=== PATIENT | female | born 1985 | race American Indian/Alaskan Native ===

== ENCOUNTER 2020-07-13 08:37 | Emergency (ER) | payer SELFPAY ==
[2020-07-13] MEDS ORDERED: LIDOCAINE (1%) 10 MG/1 ML VIAL 20 ML MDV INFILTRATI ONE (11:09)
--- NOTE | 2020-07-13 11:19 | Emergency Department Report ---
ED General Adult HPI - General Chief complaint: Skin/Abscess/Foreign Body Stated complaint: BOIL Time Seen by Provider: 07/13/20 10:36 Source: patient Mode of arrival: Ambulatory Limitations: No Limitations - History of Present Illness Initial comments: 35-year-old -[place] female patient presents with complaints of right groin abscess x5 days. Patient states history of recurrent abscesses in her groin in her underarms, however denies any official diagnosis of hidradenitis supra [place]. She rates her current pain as a 10/10 in severity and states that she has been using warm compresses to bring the abscess to ahead. She denies any fever/chills/sweats. -: Gradual Quality: burning, aching Consistency: constant - Related Data Home Medications Medication Instructions Recorded Confirmed Last Taken Ferrous Sulfate [Feosol] 325 mg PO QDAY 08/18/16 08/18/16 08/18/16 Pnv No.95/Ferrous Fum/Folic AC 1 each PO DAILY 08/18/16 08/18/16 08/18/16 [ [place]] raNITIdine HCL [Heartburn Relief] 75 mg PO PRN PRN 08/18/16 08/18/16 08/18/16 Previous Rx's Medication Instructions Recorded Last Taken Type Ibuprofen [Motrin 600 MG tab] 600 mg PO Q6H PRN #60 tablet 08/20/16 Unknown Rx Vit-Fe Fumar-FA [ 1 each PO QDAY #30 tablet 08/20/16 Unknown Rx Vitamin] Acetaminophen/Codeine [Tylenol 1 tab PO Q6H PRN #8 tab 07/13/20 Unknown Rx /Codeine # 3 tab] Doxycycline Monohydrate 100 mg PO BID 10 Days #20 capsule 07/13/20 Unknown Rx [Doxycycline Monohydrate CAP] Mupirocin [Bactroban 2% OINT] 1 applic TP TID 7 Days #1 tube 07/13/20 Unknown Rx Allergies Allergy/AdvReac Type Severity Reaction Status Date / Time No Known Allergies Allergy Verified 08/18/16 19:27 ED Review of Systems ROS: Stated complaint: BOIL Other details as noted in HPI Constitutional: denies: chills, diaphoresis, fever, malaise, weakness Genitourinary: denies: urgency, dysuria Skin: as per HPI. denies: rash Neurological: denies: numbness, paresthesias ED Past Medical Hx - Past Medical History Previous Medical History?: Yes Hx Hypertension: No Hx Congestive Heart Failure: No Hx Diabetes: No Hx Deep Vein Thrombosis: No Hx Renal Disease: No Hx Sickle Cell Disease: Yes (SICKLE CELL TRAIT) Hx Seizures: No Hx Asthma: No Hx COPD: No Hx HIV: No - Surgical History Past Surgical History?: Yes Additional Surgical History: tonsillectomy - Social History Smoking Status: Current Every Day Smoker Substance Use Type: None - Medications Home Medications: Home Medications Medication Instructions Recorded Confirmed Last Taken Type Ferrous Sulfate [Feosol] 325 mg PO QDAY 08/18/16 08/18/16 08/18/16 History Pnv No.95/Ferrous Fum/Folic AC 1 each PO DAILY 08/18/16 08/18/16 08/18/16 History [ Caplet] raNITIdine HCL [Heartburn Relief] 75 mg PO PRN PRN 08/18/16 08/18/16 08/18/16 History Ibuprofen [Motrin 600 MG tab] 600 mg PO Q6H PRN #60 tablet 08/20/16 Unknown Rx Vit-Fe Fumar-FA [ 1 each PO QDAY #30 tablet 08/20/16 Unknown Rx Vitamin] Acetaminophen/Codeine [Tylenol 1 tab PO Q6H PRN #8 tab 07/13/20 Unknown Rx /Codeine # 3 tab] Doxycycline Monohydrate 100 mg PO BID 10 Days #20 capsule 07/13/20 Unknown Rx [Doxycycline Monohydrate CAP] Mupirocin [Bactroban 2% OINT] 1 applic TP TID 7 Days #1 tube 07/13/20 Unknown Rx ED Physical Exam - General Limitations: No Limitations General appearance: alert, in no apparent distress, obese - Head Head exam: Present: atraumatic, normocephalic - Eye Eye exam: Present: normal appearance. Absent: scleral icterus - Neck Neck exam: Present: normal inspection - Respiratory Respiratory exam: Absent: respiratory distress - Cardiovascular Cardiovascular Exam: Present: regular rate - Neurological Exam Neurological exam: Present: alert, oriented X3 - Psychiatric Psychiatric exam: Present: normal affect, normal mood - Skin Skin exam: Present: warm, dry, intact, other (3 cm round red fluctuant abscess noted to right groin with mild surrounding erythema and swelling.) ED Course Vital Signs 07/13/20 08:38 Temperature 98.3 F Pulse Rate 90 Respiratory 18 Rate Blood Pressure 138/89 O2 Sat by Pulse 99 Oximetry - I & D Thigh Blade Size: 11 I & D Procedure: betadine prep, sterile drapes applied, sterile dressing applied, gauze wick placed Progress: Bleeding occurred during procedure. 11 cc 1% lidocaine used to anesthetize the area. Copious purulent drainage obtained from wound. Sample was taken for wound culture. ED Medical Decision Making - Medical Decision Making Patient here for abscess in right groin. Abscess was drained and a wound culture was sent. Patient tolerated procedure well. Given history of recurrent abscesses and growing and axilla, patient likely has hidradenitis suppurativa. Given surrounding erythema, 1 dose of rocephin was given here in ED for cellulitis. Discussed importance of follow-up with a primary care provider for further evaluation and treatment of this. Discussed wound care and strict return precautions in great detail with patient who verbalizes understanding. She is well-appearing, afebrile, and stable for discharge home. Prescription for doxycycline and mupirocin given. Patient instructed to return to ED in 2 days for wound recheck. Critical care attestation.: If time is entered above; I have spent that time in minutes in the direct care of this critically ill patient, excluding procedure time. ED Disposition Clinical Impression: Abscess of right thigh, Hidradenitis suppurativa Cellulitis Qualifiers: Site of cellulitis: extremity Site of cellulitis of extremity: lower extremity Laterality: right Qualified Code(s): L03.115 - Cellulitis of right lower limb Disposition: DC-01 TO HOME OR SELFCARE Is pt being admited?: No Condition: Stable Instructions: Abscess Incision and Drainage (ED), Cellulitis (ED) Prescriptions: Mupirocin [Bactroban 2% OINT] 1 applic TP TID 7 Days #1 tube Doxycycline Monohydrate [Doxycycline Monohydrate CAP] 100 mg PO BID 10 Days #20 capsule Acetaminophen/Codeine [Tylenol /Codeine # 3 tab] 1 tab PO Q6H PRN #8 tab PRN Reason: Pain , Severe (7-10) Referrals: ONUR LYN MD [Staff Physician] - 3-5 Days
[2020-07-13] MEDS ORDERED: LIDOCAINE-MPF (1%) 10 MG/1 ML VIAL 5 ML INFILTRATI ONE (12:29)
[2020-07-13 13:02] VITALS: BP 169/83
== END 2020-07-13 13:02 | disposition home or self-care (01) ==
LOC: ED 08:37
DX: L02.415 Cutaneous abscess of right lower limb (principal); L73.2 Hidradenitis suppurativa; L03.90 Cellulitis, unspecified; F17.200 Nicotine dependence, unspecified, uncomplicated; Z79.899 Other long term (current) drug therapy; Z90.49 Acquired absence of other specified parts of digestive tract
CPT/HCPCS: 10060; 96372; 99282; J0696